=== PATIENT | male | born 2000 | race Caucasian/White ===

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

== ENCOUNTER 2025-04-12 00:53 | Emergency (ER) | payer OTHER ==
[~2025-04-12] VITALS: Ht 177.8 cm; Wt 74.7 kg
[2025-04-12] MEDS ORDERED: MIRA3350 PO (03:56)
[2025-04-12] MEDS ORDERED: DULC10SU2 PR (03:56)
[2025-04-12] MEDS: MAGNESIUM CITRATE 300 ML BTL PO ONE (04:14)
[2025-04-12] MEDS: BISACODYL 10 MG SUPP PR ONE (04:15)
[2025-04-12 04:26] VITALS: BP 127/58; TEMP 97.9; O2SAT 98
== END 2025-04-12 04:28 | disposition home or self-care (01) ==
LOC: M ED 00:53
DX: K59.00 Constipation, unspecified (principal); Z91.010 Allergy to peanuts; Z79.899 Other long term (current) drug therapy